=== PATIENT | female | born 1985 | race African-American/Black ===

== ENCOUNTER 2023-09-09 00:37 | Emergency (ER) | payer MEDICAID, OTHER ==
[~2023-09-09] VITALS: Ht 175.3 cm; Wt 109.0 kg
[2023-09-09 00:39] VITALS: O2SAT 98
[2023-09-09] MEDS ORDERED: KETOROLAC 30MG/ML VIAL IV STA (00:41)
[2023-09-09] MEDS ORDERED: ONDANSETRON HCL 4MG/2ML INJ IV ONE (00:45)
[2023-09-09] MEDS ORDERED: SODIUM CHLORIDE 0.9% 1,000 ML IV ONE (00:45)
[2023-09-09 01:24] LABS: BASOPHILS % 0.7 % (0.0-2.0); EOSINOPHILS % 2.5 % (0.0-5.0); HEMATOCRIT. 29.1 % (36.0-48.0); HEMOGLOBIN. 8.6 g/dL (12.0-16.0); LYMPHOCYTES % 14.9 % (20.0-50.0); MEAN CORPUSCULAR HEMOGLOBIN 19.6 pg (28.0-32.0); MEAN CORPUSCULAR HGB CONC 29.6 g/dL (31.0-37.0); MEAN CORPUSCULAR VOLUME 66.2 fL (81.0-99.0); MEAN PLATELET VOLUME 8.2 fl (7.4-10.4); MONOCYTES % 5.1 % (2.0-8.0); NEUTROPHILS % 76.8 % (40.0-76.0); PLATELET 358 x1000/uL (130-400); RED CELL DISTRIBUTION WIDTH 19.3 % (11.6-14.6)
[2023-09-09 01:34] LABS: PROTHROMBIN TIME 10.3 sec (9.6-11.0)
[2023-09-09 01:44] LABS: ALANINE AMINOTRANSFERASE 12 IU/L (10-49); ALBUMIN 3.9 g/dL (3.2-4.8); ASPARTATE AMINOTRANSFERASE 14 IU/L (<34); BILIRUBIN TOTAL 0.4 mg/dL (0.1-1.0); CALCIUM 9.2 mg/dL (8.7-10.4); CARBON DIOXIDE 25 mEq/L (21-32); CHLORIDE 103 mEq/L (98-107); CREATININE 0.6 mg/dL (0.6-1.0); GLUCOSE 116 mg/dL (70-105); POTASSIUM 3.8 mEq/L (3.5-5.1); PROTEIN TOTAL 6.8 g/dL (6.0-8.3); SODIUM 136 mEq/L (136-145); UREA NITROGEN BLOOD 9 mg/dL (9-23)
[2023-09-09 01:51] LABS: ETHANOL BLOOD < 10 mg/dL (<10)
[2023-09-09 01:56] LABS: HCG SCREEN NEGATIVE
[2023-09-09 02:15] LABS: ADD RBC MORPHOLOGY YES; DIFFERENTIAL COMMENT 1
[2023-09-09] MEDS ORDERED: KETOROLAC 30MG/ML VIAL IV NR (02:15)
[2023-09-09 04:45] LABS: CLARITY URINE CLOUDY (CLEAR); COLOR URINE YELLOW (YELLOW); GLUCOSE URINE NEGATIVE (NEGATIVE); KETONES URINE NEGATIVE (NEGATIVE); LEUKOCYTE ESTERASE URINE NEGATIVE (NEGATIVE); NITRITE URINE NEGATIVE (NEGATIVE); OCCULT BLOOD URINE NEGATIVE (NEGATIVE); PH URINE 5.5 (4.5-8.0); PROTEIN URINE 1+ (NEGATIVE); SPECIFIC GRAVITY URINE 1.025 (1.005-1.030)
[2023-09-09] MEDS ORDERED: AMLODIPINE 5MG TABLET PO ONE (04:45)
[2023-09-09 04:47] LABS: HYPOCHROMASIA 1+; MICROCYTOSIS 1+; PLATELET ESTIMATE NORMAL
[2023-09-09 04:48] LABS: RBC URINE 0-2 /hpf (0-2); SQUAMOUS EPITHELIAL CELL URINE 2+ /lpf (RARE/1+); YEAST URINE NONE SEEN
[2023-09-09] MEDS ORDERED: NAPR-420 MT (04:50)
[2023-09-09 04:54] LABS: *AMPHETAMINES SCREEN URINE PRESUMPTIVE POSITIVE (NEGATIVE); *BARBITURATES SCREEN URINE NEGATIVE (NEGATIVE); *BENZODIAZEPINES SCREEN URINE NEGATIVE (NEGATIVE); *COCAINE SCREEN URINE NEGATIVE (NEGATIVE); CANNABINOID URINE SCREEN NEGATIVE (NEGATIVE); ECSTASY MDMA SCREEN URINE NEGATIVE (NEGATIVE); METHADONE URINE SCREEN Neg (NEGATIVE); OPIATES URINE SCREEN NEGATIVE (NEGATIVE); PHENCYCLIDINE URINE SCREEN NEGATIVE (NEGATIVE)
[2023-09-09 05:14] LABS: BACTERIA URINE TRACE
[2023-09-09 05:19] VITALS: BP 151/95; PULSE 81; RESP 22; TEMP 98.7
== END 2023-09-09 06:51 | disposition home or self-care (01) ==
LOC: ER 00:37
DX: D25.9 Leiomyoma of uterus, unspecified (principal); I10 Essential (primary) hypertension; Z00.00 Encounter for general adult medical examination without abnormal findings; Z91.148 Patient's other noncompliance with medication regimen for other reason
CPT/HCPCS: 80053; 80305; 81003; 80320; 84703; 83690; 85025; 85610; 36415; 74176; 93976; 76830; 76856; 96361; 96374; 96375; 99285; J1885; J2405; J7030; Z7610 ×2; G0480